=== PATIENT | male | born 1990 | race Hispanic/Latino ===

== ENCOUNTER 2021-08-30 12:30 | Emergency (ER) | payer SELFPAY ==
--- NOTE | 2021-08-30 13:27 | RAD REPORT ---
EXAM DESCRIPTION: US - Scrotum Testicles - 08/30/2021 1:06 pm CLINICAL HISTORY: PAIN COMPARISON: No comparisons FINDINGS: No intratesticular masses are present. A few punctate intratesticular calcifications are p resent not regarded as significant. Testicular tissue is homogeneous with normal, symmetric blood barb w on Doppler evaluation. No epididymis enlargement or hyperemia. Trace hydrocele noted on the right. No hernia or other extratesticular abnormality. No scrotal wall thickening or edema seen. IMPRESSION: Scrotal ultrasound as detailed above shows no significant or suspicious finding.
[2021-08-30 13:42] LABS: Urine Blood Negative (Negative); Urine Glucose Negative (Negative); Urine Protein Negative (Negative)
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
[2021-08-30] MEDS ORDERED: AZITHROMYCIN 1 GM PACKET ONE (14:26)
[2021-08-30 15:11] VITALS: TEMP 99.1
[2021-08-30 15:14] VITALS: BP 119/48; O2SAT 98
== END 2021-08-30 14:42 | disposition home or self-care (01) ==
LOC: ER 12:30
DX: R30.0 Dysuria (principal); N50.811 Right testicular pain; F17.210 Nicotine dependence, cigarettes, uncomplicated
CPT/HCPCS: 76870; 81003; 87086; 87088; 99283